=== PATIENT | female | born 1990 | race Caucasian/White ===

== ENCOUNTER 2016-12-30 05:13 | Emergency (ER) | payer MEDICAID ==
[~2016-12-30] VITALS: Ht 162.6 cm; Wt 81.8 kg
[~2016-12-30 05:13] MED LIST: BACTRIM DS 8001 TA1 PO; CATAFLAM50 MG PO; CENTANY2% TP; CIPRO 500MG TA500 MG PO; LORTAB 5/500 501 TAB PO; NO HOME MEDICATIONS; ZOFRAN ODT8 MG PO
[2016-12-30] MEDS ORDERED: VENLAFAXINE37.5 MG PO (05:27)
[2016-12-30] MEDS ORDERED: KETOROLAC10 MG PO (05:55)
[2016-12-30] MEDS ORDERED: CLEOCIN HC150 MG/CAP PO (05:55)
[2016-12-30 05:58] VITALS: BP 120/76
== END 2016-12-30 05:58 | disposition home or self-care (01) ==
LOC: ED 05:13
DX: K08.89 Other specified disorders of teeth and supporting structures (principal); K02.9 Dental caries, unspecified; M26.621 Arthralgia of right temporomandibular joint
CPT/HCPCS: J1885